=== PATIENT | male | born 1995 | race Caucasian/White ===

== ENCOUNTER 2024-08-25 12:07 | Emergency (ER) | payer MEDICAID ==
[2024-08-25] MEDS: Ibuprofen 200 MG Tab PO ONE (12:19)
== END 2024-08-25 12:46 | disposition home or self-care (01) ==
LOC: VM.ED 12:07
DX: S62.346A Nondisplaced fracture of base of fifth metacarpal bone, right hand, initial encounter for closed fracture (principal); W23.1XXA Caught, crushed, jammed, or pinched between stationary objects, initial encounter
CPT/HCPCS: 73130-RT; 99283; A9270-GY

== ENCOUNTER 2024-11-05 18:07 | Emergency (ER) | payer MEDICAID ==
[2024-11-05] MEDS: Take Home: Naproxen 500 MG Tab, 4 Tab Pack PO ONE (18:27)
[2024-11-05] MEDS: Take Home: Amoxicillin/Clavulanate K 875-125 MG Tab, 2 Tab Pack PO ONE (18:27)
== END 2024-11-05 18:31 | disposition home or self-care (01) ==
LOC: VM.ED 18:07
DX: K08.89 Other specified disorders of teeth and supporting structures (principal); F17.210 Nicotine dependence, cigarettes, uncomplicated
CPT/HCPCS: 99282; 99283; A9270-GY

== ENCOUNTER 2025-01-15 15:50 | Emergency (ER) | payer MEDICAID | END 2025-01-15 16:25 | disposition home or self-care (01) | LOC: VM.ED 15:50 | DX: K08.89 Other specified disorders of teeth and supporting structures (principal) | CPT/HCPCS: 99282 ==

== ENCOUNTER 2025-03-20 14:12 | Emergency (ER) | payer MEDICAID | END 2025-03-20 14:59 | disposition home or self-care (01) | LOC: VM.ED 14:12 | DX: S02.5XXA Fracture of tooth (traumatic), initial encounter for closed fracture (principal); Z79.899 Other long term (current) drug therapy; Z87.891 Personal history of nicotine dependence; X58.XXXA Exposure to other specified factors, initial encounter; Y93.89 Activity, other specified | CPT/HCPCS: 99282; 99283 ==